=== PATIENT | female | born 2000 | race Caucasian/White ===

== ENCOUNTER 2025-01-30 14:47 | Emergency (ER) | payer OTHER ==
[~2025-01-30] VITALS: Ht 152.4 cm; Wt 46.3 kg
[2025-01-30] MEDS ORDERED: HYDROCODONE/APAP 5/325MG TABLET ONE (16:09)
[2025-01-30] MEDS ORDERED: ACETAMINOPHEN ES 500 MG TABLET ONE (16:09)
[2025-01-30] MEDS ORDERED: ONDANSETRON HCL/PF 4 MG/2 ML VIAL ONE (16:09)
[2025-01-30 16:13] LABS: PLATELET COUNT (AUTO) 230 K/uL (150-450); RED BLOOD CELL COUNT(AUTO) 5.04 MIL/uL (4.0-5.2); RED CELL DISTRIBUTION WIDTH 13.1 % (11.5-15.0); WHITE BLOOD COUNT (AUTO) 7.3 K/uL (4.3-11.0)
[2025-01-30 16:16] LABS: PREGNANCY TEST URINE QUAL NEGATIVE (NEGATIVE)
[2025-01-30] MEDS: IV NS 0.9% 1,000 ML BAG IV ONE (16:16)
[2025-01-30] MEDS: ONDANSETRON HCL/PF 4 MG/2 ML VIAL IVP ONE (16:16)
[2025-01-30] MEDS: ACETAMINOPHEN ES 500 MG TABLET PO ONE (16:17)
[2025-01-30] MEDS: HYDROCODONE/APAP 5/325MG TABLET PO ONE (16:17)
[2025-01-30 16:19] LABS: APPEARANCE,URINE CLEAR (CLEAR); BLOOD, URINE NEGATIVE Ery/uL (NEGATIVE); LEUKOCYTE ESTERASE ,URINE NEGATIVE (NEGATIVE); NITRITE, URINE POSITIVE (NEGATIVE); UGLUCOSE NEGATIVE (NEGATIVE)
[2025-01-30 16:20] LABS: CALCIUM, SERUM 9.6 mg/dL (8.5-10.1); CREATININE 1.0 mg/dL (0.6-1.3); SODIUM SERUM 138.0 mmol/L (136-145); UREA NITROGEN, BLOOD 9.0 mg/dL (7-18)
[2025-01-30 16:24] LABS: ADD URINE CULTURE YES; SQUAMOUS EPITHELIAL CELL,UR Few /HPF (None Seen)
[2025-01-30 16:27] LABS: ASPARTATE AMINOTRANSFERASE 19.0 U/L (15-37); TOTAL PROTEIN, SERUM 8.5 g/dL (6.4-8.2)
[2025-01-30] MEDS ORDERED: IV NS 0.9% 250 ML IV ONE (16:29)
[2025-01-30] MEDS ORDERED: IOHEXOL-300 100 ML VIAL IV ONE (16:29)
[2025-01-30] MEDS: KETOROLAC TROMETHAMINE 15 MG/ML VIAL IV ONE (16:50)
[2025-01-30] MEDS ORDERED: LIDOCAINE 1% INJ 50 ML MDV IJ ONE (17:52)
[2025-01-30] MEDS ORDERED: CEFTRIAXONE 1 G VIAL ONE (17:52)
[2025-01-30] MEDS: CEFTRIAXONE 1 G VIAL IM ONE (18:02)
[2025-01-30] MEDS ORDERED: SULF1TAB48 PO (18:03)
[2025-01-30 18:28] VITALS: BP 122/73; TEMP 98.6; O2SAT 99
== END 2025-01-30 18:37 | disposition home or self-care (01) ==
LOC: ER 15:15
DX: N12 Tubulo-interstitial nephritis, not specified as acute or chronic (principal); R10.31 Right lower quadrant pain; N39.0 Urinary tract infection, site not specified; M54.50 Low back pain, unspecified; R11.2 Nausea with vomiting, unspecified; Z88.0 Allergy status to penicillin
CPT/HCPCS: 99285; 74177; 96374; 96361; 96375; 85025; 80048; 87086; 83690; 80076; 81001; 36415; 96372; 84703 ×2; J1885; J3490; J0696; J2405; J7030; J7050; Q9967; 87186-TC

== ENCOUNTER 2025-04-08 19:32 | Emergency (ER) | payer OTHER ==
[~2025-04-08 19:32] MED LIST: SULF1TAB48 PO
== END 2025-04-08 20:50 | disposition left against medical advice (07) ==
LOC: ER 19:42
DX: Z53.21 Procedure and treatment not carried out due to patient leaving prior to being seen by health care provider (principal)